=== PATIENT | male | born 1990 | race Hispanic/Latino ===

== ENCOUNTER 2021-11-30 13:12 | Emergency (ER) | payer OTHER ==
[~2021-11-30] VITALS: Ht 167.6 cm; Wt 62.6 kg
[2021-11-30] MEDS ORDERED: LIDOCAINE HCL MPF 1% 5ML VIAL ONE (13:19)
[2021-11-30] MEDS ORDERED: SULFAMETHOX-TMP DS 800/160 TAB PO SCH (13:30)
[2021-11-30 13:31] VITALS: BP 130/92
[2021-11-30] MEDS ORDERED: SULF1TAB42 PO (13:34)
== END 2021-11-30 13:42 | disposition home or self-care (01) ==
LOC: EDH 13:12
DX: L02.211 Cutaneous abscess of abdominal wall (principal)
CPT/HCPCS: 10060; 99283; J3490

== ENCOUNTER 2022-07-20 09:33 | Emergency (ER) | payer OTHER ==
[~2022-07-20] VITALS: Ht 167.6 cm; Wt 61.2 kg
[~2022-07-20 09:33] MED LIST: SULF1TAB42 PO
[2022-07-20 09:37] VITALS: BP 125/88
[2022-07-20] MEDS ORDERED: AMOX1TAB16 PO (10:28)
== END 2022-07-20 10:48 | disposition home or self-care (01) ==
LOC: EDH 09:33
DX: L02.811 Cutaneous abscess of head [any part, except face] (principal)